=== PATIENT | female | born 1955 ===

== ENCOUNTER 2016-10-16 11:45 | Day surgery (SDC) | payer MEDICAID, OTHER ==
[~2016-10-16] VITALS: Ht 160 cm; Wt 62.6 kg
[~2016-10-16 11:45] MED LIST: CETI10CA PO; DICL100G8 TOPICAL; FLUT16SP NS; GLUC-91 PO; LIDO1ADH TP; Lactated Ringer's 1,000 ML IV ONE; METH40TA2 PO; PREG75CA PO; RANI150C4 PO; SOMA350 PO; [UNRECOGNIZED DRUG - OTHER] PO
[2016-10-16] MEDS ORDERED: Propofol 10,000 mCg/mL 20 mL Inj ONE (11:46)
[2016-10-16 12:53] VITALS: BP 128/70; PULSE 74; RESP 14; O2SAT 97
[2016-10-16] MEDS ORDERED: Lactated Ringer's 1,000 ML IV SCH (13:56)
[2016-10-16] MEDS ORDERED: Ondansetron 2 mg/mL 2 mL Inj IVPUSH PRN (14:00)
[2016-10-16] MEDS ORDERED: MetoCLOpramide 5 mg/mL 2 mL Inj IVPUSH PRN (14:00)
[2016-10-16 14:12] VITALS: BP 103/56; PULSE 78; RESP 16; O2SAT 96
[2016-10-16 14:22] VITALS: BP 105/70; PULSE 67; RESP 16; O2SAT 97
--- NOTE | 2016-10-16 17:31 | PCM.HPANE ---
Patient Data Surgeon Admitting Provider: Attending Provider:Namita Peralta MD Primary Care Physician:Other,Physician Other Provider:Roman Dotson Anesthesia Reason for Visit Drug-Induced Constipation Ht/WT & BMI Body Mass Index Allergies Coded Allergies: NSAIDS (Non-Steroidal Anti-Inflamma (Verified Allergy, Unknown, N/V, DIARRHEA, 10/16/16) Penicillins (Verified Allergy, Unknown, HIVES, 10/16/16) Sulfa (Sulfonamide Antibiotics) (Verified Allergy, Unknown, SWELLING FACE , 10/16/16) Past Anesthesia History Anesthesia History: Denies:: Abnormal Airway, Anesthesia Reactions, Difficult Intubation, Fam Anesthesia Reaction, Fam Malignant Hypertherm, Malignant Hyperthermia Medications Reported Medications Cetirizine HCl (Zyrtec)10 Mg [id number] Mg PO HS #30 CAPSULE Ref 0 10/15/16 Diclofenac Gel (Voltaren Gel)100 Gm Tube1 Applic TOPICAL #1 TUBE 10/15/16 Ranitidine 150 Mg [id number] Mg PO BID Ref 0 10/15/16 [intensol] No Conflict Check10 Mg PO 10/15/16 Methadone 40 Mg Tablet.sol80 Mg PO DAILY 10/15/16 Pregabalin (Lyrica)75 Mg [id number] Mg PO BID 30 Days Ref 0 10/15/16 Lidocaine/Menthol (Lidopatch)1 Each Adh..patch1 Each TP 10/15/16 Gluc/Simon-MSM#1/Vit C/Juve/Bor (Atolrab-Dxgbb-VTQ Complex Cplt)1 Each Tablet1 Each PO 10/15/16 Fluticasone Propionate (Fluticasone Propionate Nasal)16 Gm [place].susp2 [place] NS BID #16 GM Ref 0 10/15/16 Carisoprodol 350 Mg [id number] Mg PO QID PRN c 10/15/16 History History of ENT Problems?: No HEENT History: Denies:: Abnormal Airway Cataracts Difficult Intubation Dysphagia Glaucoma Hearing Problem Sinus Problem TMJ Denture Type: None Teeth Condition: Within Normal Limits Hx of Heart Problems?: No Cardiovascular History: Denies:: AICD Abdominal Aortic Aneurism Atrial Fibrillation Cardiac Surgery Chest Pain Congestive Heart Failure Coronary Artery Disease Edema Heart Murmur Hypertension Irregular Heartbeat Pacemaker Peripheral Vascular Rheumatic Fever Thrombophlebitis Valvular Heart Disease Hx of Respiratory Problem?: No Respiratory History: Denies:: Asthma COPD Chest Surgery Cough Dyspnea Emphysema Hemoptysis Oxygen Administration Pneumonia Pulmonary Embolism Tuberculosis Use of C-PAP Machine Use of Inhalers / NEBS Hx Neurologic Problems?: No Neurological History: Denies:: Alzheimer's Disease CVA Dementia Dizziness Headaches Multiple Sclerosis Parkinson's Disease Peripheral Neuropathy Seizures TIA Hx of GI Problems?: No Gastrointestinal History: Denies:: Cirrhosis Diverticulitis Gall Bladder Disease Gastroesphageal Reflux Gastrointestinal Bleeding Heartburn Hepatitis Hiatal Hernia Liver Disease Rectal Bleeding Hx of Problems?: No Genitourinary History: Denies:: HX of Hemodialysis Kidney Stones Urinary Tract Infection HX of Peritoneal Dialysis: No Female Hx: Denies:: Currently Endometriosis Pelvic Inflammatory Problems with Breasts? Skin History: Denies:: History Skin Disorders? Pressure Ulcers Hx Musculoskeletal Problems?: No Musculoskeletal History: Denies:: Back Injury Degenerative Joint Fibromyalgia Joint Replacement Musculoskeletal Trauma Myasthenia Gravis Osteoarthritis Rheumatoid Arthritis Systemic Lupus Hx of Psycho/Social Problems?: No Psycho Social History: Denies:: Anxiety Bipolar Disorder Hx Depression Suicide Attempt Hx Surgeries?: No Hx Any Other Health Problems?: No Other History: Denies:: Cancer Endocrine Disease Hospitalization Thyroid Disease History Blood Transfusions: Denies:: Accept Blood Products? Blood Transfuse Reaction Blood Transfusions Hx Diabetes: No Stop/Bang Risk Assessment Category Category 1A: Patient has history of documented sleep apnea, and HAS NOT received any narcotic, sedative or anesthesia administration during this stay. Category 1B: Patient has history of documented sleep apnea, and HAS received any narcotic , sedative or anesthesia administration during this stay Category 2: Patient has SUSPECTED Obstructive Sleep Apnea, and HAS received any narcotic , sedative or anesthesia administration during this stay. Category 3: Patient has SUSPECTED Obstructive Sleep Apnea and HAS NOT received narcotic, sedative or anesthesia administration during this stay. Category 4: Outpatient in Procedural Areas with known sleep apnea or who screen positive for High Risk via the STOP/BANG questionnaire. Exam Exam General Appearance: Alert, Oriented X3, Cooperative HEENT/AIRWAY: MP 2, Neck Movement (FROM), Mouth Opening (3 FBMO) Lungs: Normal Air Movement Heart: Regular Rate/Rhythm Plan Impression Patient chart reviewed, patient interviewed and anesthestic plan with risks, benefits, and alternatives discussed, and informed consent obtained. NPO per Anesth. Guidelines: Yes ASA Physical Status: ASA2 Mod Systemic Disease Anesthetic Plan: MAC Bene/Risks/Altern/Consents: Yes HP Complete Prior to Induction: Yes Kalia Lucas MD October 16, 2016 07:24
--- NOTE | 2016-10-16 17:32 | PCM.ANEP1 ---
Post Anesthesia PACU Phase 1 Assessment Vital Signs Vital Signs Date Time Temp Pulse Resp B/P Pulse Ox O2 Delivery O2 Flow Rate FiO2 10/16/16 14:22 67 16 105/70 97 Room Air 10/16/16 14:12 78 16 103/56 96 Room Air 10/16/16 12:53 74 14 128/70 97 Room Air Anesthetic Administered: MAC Level of Alertness: Awake, talking BECKFORD's with Equal Strength: Yes Pain: No Nausea or Vomiting: No CV Function and Hydration: No Airway Device: none Oxygen Delivery: Room Air Lungs: Normal Air Movement Dermatome Level: Full Sensation PACU Phase 2 Assessment Complications: No Follow up Care: N/A Patient Instructions Provided: N/A Kalia Lucas MD October 16, 2016 17:32
--- NOTE | 2016-10-17 10:48 | ENDO ---
[address] [address] ENDOSCOPY PROCEDURE PATIENT: ELIGIO DAY : 1955 MR#: [id number] ADMIT: 10/16/2016 JOB ID: [id number] DATE: 10/16/2016 PROCEDURE: Colonoscopy. INDICATION: Constipation. The patient also reports having had a screening colonoscopy, last 12 years ago[address] Kalia Lucas's anesthesia report for details regarding ASA classification, Mallampati score and medications. INSTRUMENT USED: PCF H 180 AL. PREPARATION QUALITY: Was good. PROCEDURE DETAILS: After informed consent was obtained, the patient was brought into the GI suite, where she was placed on oxygen via nasal cannula and monitored with continuous pulse oximeter, telemetry and blood pressure monitoring. A time-out was performed. Then, she was placed in the left lateral decubitus position and medications were administered for sedation. A digital rectal examination was performed, which was unremarkable. The colonoscope was then inserted into the rectum and advanced under direct visualization to the cecum, which was identified by the presence of the ileocecal valve and appendiceal orifice. Once the cecum was reached, the colonoscope was withdrawn back into the rectum as the mucosa and lumen were examined. In the rectum, retroflexion was performed. Following retroflexion, remaining air in the rectum was suctioned, and the procedure was completed. FINDINGS: Normal examination from rectum to cecum. IMPRESSION: Normal colonoscopy. RECOMMENDATIONS: Followup in GI clinic. COMPLICATIONS: None. ESTIMATED BLOOD LOSS: 0.
== END 2016-10-16 23:59 | disposition home or self-care (01) ==
LOC: END 11:45
PROVIDERS: ATTEND Internal Medicine Gastroenterology
DX: K59.03 Drug induced constipation (principal); R10.32 Left lower quadrant pain; Z85.3 Personal history of malignant neoplasm of breast; Z92.3 Personal history of irradiation; Z92.21 Personal history of antineoplastic chemotherapy; M79.7 Fibromyalgia; Z79.891 Long term (current) use of opiate analgesic
CPT/HCPCS: 45378; J7120